=== PATIENT | male | born 1945 | race Caucasian/White ===

== ENCOUNTER → 2016-11-23 | Day surgery (SDC) | payer OTHER ==
[~2016-11-23] MED LIST: ALPH200C3 PO; ASPI325T PO; ATOR40TA49 PO; BUPIVACAINE HCL PF 0.5% 10 ML VIAL ONE; ENOX40P SQ; FLUO10TA PO; FOLI800T12 PO; GLIP10TA6 PO; GLIP2.5T2 PO; IRON27TA PO; LACTATED RINGER'S 1000 ML INJ 1,000 ML ONE; LISI10TA PO; LORTA5 PO; METF500 PO; MIDAZOLAM HCL 2 MG/2 ML VIAL ONE; PROPOFOL 100 MG/10 ML INJ IV ONE; TAB-TAB PO; VITA10002 PO; Z.0.COMMODE-3:1; Z.0.WALKERFRONT; ceFAZolin INJ 1,000 MG VIAL ONE
--- NOTE | 2016-11-24 10:06 | MP ---
cc: JEROMY WEAVER DATE OF SURGERY: 11/23/2016 PREOPERATIVE DIAGNOSIS Left hand long finger stenosing tenosynovitis (trigger finger). POSTOPERATIVE DIAGNOSIS Left hand long finger stenosing tenosynovitis (trigger finger). SURGEON Dr. 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 My SENIOR UI DEVELOPER presence was necessary throughout this case for the manipulation and positioning of the surgical extremity. My SENIOR UI DEVELOPER was assisting me throughout the duration of this procedure. The skill set of an Advanced Registered Nurse Practitioner was medically necessary to complete this procedure. During the surgical case, the instructor adjunct surgical technician was working at the back table and the Advanced Registered Nurse Practitioner was directly assisting me. PROCEDURE Left hand long finger incision of A1 etienne for stenosing tenosynovitis. ANESTHESIA TIVA. TOURNIQUET TIME Six minutes at 250 mmHg pressure. DETAILS OF PROCEDURE The patient was brought back to the operating theatre. TIVA anesthesia was administered. The left upper extremity is prepped and draped in the usual sterile fashion. The patient received intravenous Ancef. We gave infiltration of 0.25% Marcaine without epinephrine into the palmar aspect of the hand over the long finger A1 etienne. The arm was exsanguinated. The tourniquet was raised. A standard oblique incision was made with careful dissection down to the A1 etienne, protecting the digital nerves. We found quite a bit of adhesions in this area. We incised the etienne in the mid aspect. We found that the etienne was actually adhesed to the underlying flexor tendon. We needed to lift the etienne off of the tendon and we found that there was already some tendinosis of the flexor tendon of a moderate degree with some fraying of the underlying tendon. We flexed and extended the finger, found that we had excellent excursion of the digit. We resected a small amount of the etienne to try to help reduce the chance of recurrent adhesions. The tourniquet was released. Hemostasis was achieved. The skin was closed with 2-0 Vicryl followed by 3-0 nylon. The hand was dressed. The postoperative plan is start early range of motion. Jeromy Weaver MD /MITZI /2:00 PM /9:55 AM
== END | disposition home or self-care (01) ==
LOC: ESDC 12:03
PROVIDERS: ATTEND Orthopaedic Surgery
DX: M65.332 Trigger finger, left middle finger (principal)
CPT/HCPCS: 01810; 26055; J0690; J2250; J3010; J7120

== ENCOUNTER → 2017-04-29 | Day surgery (SDC) | payer OTHER ==
[~2017-04-29] MED LIST changes: -BUPIVACAINE HCL PF 0.5% 10 ML VIAL ONE; +BUPIVACAINE HCL PF 0.5% 30 ML VIAL ONE; -PROPOFOL 100 MG/10 ML INJ IV ONE
== END | disposition home or self-care (01) ==
LOC: ESDC 12:37
PROVIDERS: ATTEND Orthopaedic Surgery
DX: M65.341 Trigger finger, right ring finger (principal)
CPT/HCPCS: J0690; J7120; J2250

== ENCOUNTER → 2017-05-03 | Day surgery (SDC) | payer OTHER ==
[~2017-05-03] MED LIST changes: +BUPIVACAINE HCL PF 0.5% 10 ML VIAL ONE; -BUPIVACAINE HCL PF 0.5% 30 ML VIAL ONE; -LACTATED RINGER'S 1000 ML INJ 1,000 ML ONE; +PROPOFOL 200 MG/20 ML AMP IV ONE
--- NOTE | 2017-05-03 23:44 | MP ---
cc: CAROLYN WEAVER DATE OF SURGERY: 05/03/2017 PREOPERATIVE DIAGNOSIS: Right hand ring finger stenosing tenosynovitis (trigger finger). POSTOPERATIVE DIAGNOSIS Right hand ring finger stenosing tenosynovitis (trigger finger). SURGEON Dr. Weaver. PASSENGER AGENT: Staff. PROCEDURE: Right hand ring finger open release of the A1 etienne for stenosing tenosynovitis. BLOOD LOSS: Minimal TOURNIQUET TIME: 6 minutes at 250 mmHg pressure. ANESTHESIA: MAC anesthesia and local. DESCRIPTION OF PROCEDURE: The patient brought back to the operative theatre. He received intravenous Ancef. He had MAC anesthesia administered along with local anesthetic after the right upper extremity had been prepped and draped in usual sterile fashion. The arm was exsanguinated. Tourniquet was raised. We placed the hand into an aluminum hand salazar and then we made standard oblique incision over the ring finger A1 etienne. We bluntly dissected down to the flexor tendon. We incised the etienne in the mid aspect and the completed this by completing the incision of the etienne distally and then proximally ensuring that we had complete release of the etienne. We moved the finger and found that the underlying flexor tendons were intact. The was a little bit of fluid that came out of the tendon sheath. The tourniquet was released. Hemostasis was achieved. The wound was thoroughly irrigated and then closed with 2-0 Vicryl followed by 3-0 nylon. The patient was placed into a sterile hand bundle. Postoperative plan is early range of motion. Carolyn Weaver MD /EDILBERTO /4:41 PM /11:35 PM
== END | disposition home or self-care (01) ==
LOC: ESDC 14:37
PROVIDERS: ATTEND Orthopaedic Surgery
DX: M65.341 Trigger finger, right ring finger (principal)
CPT/HCPCS: 01810; 26055; J0690; J2250; J3010